=== PATIENT | male | born 1955 | race Caucasian/White ===

== ENCOUNTER → 2017-11-28 | Outpatient (REF) | payer BC ==
[~2017-11-28] MED LIST: AMLO-543 PO; AMLO-96 PO; CLOB15CR22 TP; MENS VITAMIN PO; NIAC500C17 PO; PER PO; PNEU0.5D3 IM; PRAV20TA65 PO; RAMI10CA52 PO
== END ==
LOC: ZZSENDIN 14:53
PROVIDERS: ATTEND Physician Assistant
DX: R31.9 Hematuria, unspecified (principal)
CPT/HCPCS: 81001

== ENCOUNTER → 2018-01-02 | Outpatient (REF) | payer BC ==
[~2018-01-02] MED LIST changes: +DIPH0.5D12 IM; +PRAV40TA78 PO
== END ==
LOC: ZZSENDIN 09:13
PROVIDERS: ATTEND Physician Assistant
DX: R31.9 Hematuria, unspecified (principal)
CPT/HCPCS: 81001

== ENCOUNTER → 2018-11-18 | Outpatient (REF) | payer BC ==
[~2018-11-18] MED LIST changes: +AMLO-125 PO; -AMLO-96 PO; -DIPH0.5D12 IM; +DIPH0.5S2 IM; -RAMI10CA52 PO; +RAMI10CA9 PO
--- NOTE | 2018-11-18 10:21 | RADIOLOGY IMAGING REPORT ---
FACILITY: [facility] PATIENT NAME: Rhett Lee : 1955 MR: [id number] V: [id number] EXAM DATE: ORDERING PHYSICIAN: KRYSTA WEIR TECHNOLOGIST: Location: [facility] Patient: Rhett Lee : 1955 Visit/Account:[id number] Date of Sevice: 11/18/2018 CHEST SINGLE AP Indication: Patient needs medical certificate. Comparison: Chest x-ray 05/18/2014 Findings: Lungs: Clear. Mediastinum/pulmonary vasculature: Heart size and pulmonary vasculature are normal. Bones/soft tissues: Normal. IMPRESSION: Clear lungs. Report Dictated By: Sin Wallace at 11/18/2018 10:16 AM Report E-Signed By: Sin Wallace at 11/18/2018 10:16 AM WSN:[email or web address]
== END ==
LOC: RAD 09:42 → EDSTATUS 12-19 15:05
PROVIDERS: ATTEND Physician Assistant
DX: Z02.79 Encounter for issue of other medical certificate (principal)
CPT/HCPCS: 71045